=== PATIENT | female | born 1990 | race Caucasian/White ===

== ENCOUNTER 2017-10-07 19:43 | Inpatient (IN) | END 2017-10-10 20:00 | disposition home or self-care (01) | DRG 780 ==

== ENCOUNTER 2017-11-06 03:52 | Inpatient (IN) | END 2017-11-06 23:40 | disposition home or self-care (01) | DRG 782 ==

== ENCOUNTER 2017-11-08 06:48 | Inpatient (IN) | END 2017-11-10 16:46 | disposition home or self-care (01) | DRG 775 ==